=== PATIENT | female | born 1965 | race African-American/Black ===

== ENCOUNTER 2018-12-22 22:46 | Emergency (ER) | payer SELFPAY ==
[~2018-12-22] VITALS: Ht 167.6 cm; Wt 99.8 kg
[2018-12-22 22:46] VITALS: BP 119/76
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
== END 2018-12-22 22:53 | disposition left against medical advice (07) ==
LOC: EDBD 22:46 → EMR 22:50
DX: R52 Pain, unspecified (principal); F41.9 Anxiety disorder, unspecified; Z53.21 Procedure and treatment not carried out due to patient leaving prior to being seen by health care provider; I10 Essential (primary) hypertension; Z88.0 Allergy status to penicillin; Z88.2 Allergy status to sulfonamides
CPT/HCPCS: 99283